=== PATIENT | male | born 1985 | race Caucasian/White ===

== ENCOUNTER 2019-09-22 12:47 | Emergency (ER) | payer OTHER ==
[2019-09-22] MEDS ORDERED: AMOXICILLIN875 MG PO (13:58)
[2019-09-22] MEDS ORDERED: ZOFRAN4 MG/TAB PO (13:59)
[2019-09-22 14:10] VITALS: BP 136/91
== END 2019-09-22 14:10 | disposition home or self-care (01) ==
LOC: ED 12:47
DX: J02.9 Acute pharyngitis, unspecified (principal); R11.0 Nausea